=== PATIENT | male | born 1980 | race Two or more races ===

== ENCOUNTER → 2020-11-10 09:24 | Outpatient (CLI) | payer OTHER, SELFPAY ==
--- NOTE | ~2020-11-10 | XR_ITS ---
EXAMINATION: XR UGIAC wo kub DATE: 11/10/2020 10:27 INDICATION: Bloating. Early satiety. TECHNIQUE: The patient drank thick barium, gas-producing crystals, and thin barium. A total of 700 fl uoroscopic images of the esophagus, stomach, and proximal small bowel were obtained. Fluoroscopy expo sure time was 1.7 minutes. Total DAP was 9.627 mGycm^2 COMPARISON: None. FINDINGS: The esophagus is normal without mass or stricture. Esophageal motility is normal. There is no hiatal hernia. There was no gastroesophageal reflux with provocative maneuvers. The stomach and proximal sma ll bowel are normal. There is relatively prompt gastric emptying. IMPRESSION: 1. Normal upper GI study. Reviewed, dictated and finalized at location B. IMPRESSION: 1. Normal upper GI study.
== END ==
PROVIDERS: PCP Emergency Medicine; Visit Provider Emergency Medicine
DX: R14.0 Abdominal distension (gaseous) (principal); R68.81 Early satiety
CPT/HCPCS: 74246